=== PATIENT | male | born 1965 | race African-American/Black ===

== ENCOUNTER 2021-07-11 13:40 | Inpatient (IN) | payer MEDICAID ==
[~2021-07-11] VITALS: Ht 73.7 cm; Wt 49.5 kg
[~2021-07-11 13:40] MED LIST: ASCO125T PO; FERR-63 PO; HYDR-3927 PO; LEVO500T2 PO; METR250T36 PO; MULT-783 PO; ZINC220T4 PO
[2021-07-11] MEDS ORDERED: ONDANSETRON HCL 4MG/2ML INJ IV STA (13:47)
[2021-07-11] MEDS ORDERED: PANTOPRAZOLE SODIUM 40 MG/VIAL IV STA (13:47)
[2021-07-11] MEDS ORDERED: SODIUM CHLORIDE 0.9% 1,000 ML IV ONE (14:00)
[2021-07-11] MEDS ORDERED: SODIUM CHLORIDE 0.9% 1000ML BAG (SEPSIS BOLUS) IV ONE (14:45)
[2021-07-11] MEDS ORDERED: VANCOMYCIN 750 MG PREMIX 150 ML IV STA (14:51)
[2021-07-11 15:07] LABS: HEMATOCRIT. 30.9 % (42.0-52.0); HEMOGLOBIN. 10.4 g/dL (14.0-18.0); MEAN CORPUSCULAR HEMOGLOBIN 29.9 pg (28.0-32.0); MEAN CORPUSCULAR VOLUME 89.2 fL (80.0-94.0); PLATELET 467 x1000/uL (130-400); RED BLOOD CELL COUNT 3.46 mill/uL (4.7-6.1); RED CELL DISTRIBUTION WIDTH 13.8 % (11.6-14.6)
[2021-07-11] MEDS ORDERED: MORPHINE SULFATE 4 MG/ML CPJ (NOT FOR IM USE) IV STA (15:07)
[2021-07-11 15:11] LABS: CHLORIDE 100 mEq/L (98-107)
[2021-07-11 15:14] LABS: INR 1.1
[2021-07-11 15:18] LABS: ETHANOL BLOOD < 10 mg/dL
[2021-07-11] MEDS ORDERED: LABETALOL 5MG/ML SYR 20 MG/4 ML SYRINGE IV ONE (15:45)
[2021-07-11 16:05] LABS: PLATELET ESTIMATE INCREASED
[2021-07-11] MEDS ORDERED: HYDROCODONE/ACETAMINOPHEN 5/325MG TABLET PO NR (18:00)
[2021-07-11] MEDS ORDERED: NALOXONE HCL 0.4MG/ML VIAL IV PRN (22:00)
[2021-07-11] MEDS: HYDROCODONE/ACETAMINOPHEN 5/325MG TABLET PO PRN (23:15)
[2021-07-12] VITALS (9 sets, daily range): BP systolic 108–148; BP diastolic 57–88
[2021-07-12 02:35] LABS: CLARITY URINE CLOUDY (CLEAR); COLOR URINE YELLOW (YELLOW); KETONES URINE NEGATIVE (NEGATIVE); LEUKOCYTE ESTERASE URINE 2+ (NEGATIVE); NITRITE URINE POSITIVE (NEGATIVE); OCCULT BLOOD URINE 2+ (NEGATIVE); PH URINE 6.5 (4.5-8.0); PROTEIN URINE 2+ (NEGATIVE); SPECIFIC GRAVITY URINE 1.013 (1.005-1.030)
[2021-07-12 03:03] LABS: *AMPHETAMINES SCREEN URINE NEGATIVE (NEGATIVE); *BARBITURATES SCREEN URINE NEGATIVE (NEGATIVE); *BENZODIAZEPINES SCREEN URINE NEGATIVE (NEGATIVE); *COCAINE SCREEN URINE PRESUMTIVE POSITIVE (NEGATIVE); METHADONE URINE SCREEN NEGATIVE (NEGATIVE); OPIATES URINE SCREEN PRESUMTIVE POSITIVE (NEGATIVE)
[2021-07-12 03:04] LABS: CANNABINOID URINE SCREEN PRESUMTIVE POSITIVE (NEGATIVE); PHENCYCLIDINE URINE SCREEN NEGATIVE (NEGATIVE)
[2021-07-12] MEDS: HYDROCODONE/ACETAMINOPHEN 5/325MG TABLET PO PRN ×4 (03:53→17:32)
[2021-07-12] MEDS ORDERED: DEXTROSE 50% WATER 50ML SYRINGE IV PRN (05:15)
[2021-07-12] MEDS: BLOOD SUGAR DIAGNOSTIC STRIP TEST SCH ×3 (07:30→17:09)
[2021-07-12] MEDS ORDERED: VANCOMYCIN 500 MG PREMIX 100 ML IV SCH (08:00)
[2021-07-12] MEDS: INSULIN LISPRO 100 UNITS/ML SUBCUT SCH ×3 (08:00→17:09)
[2021-07-12] MEDS: AMLODIPINE 10MG TABLET PO SCH (09:10)
[2021-07-12] MEDS ORDERED: LEVOFLOXACIN 500MG PREMIX 100 ML IV NR (10:00)
[2021-07-12] MEDS: ZOLPIDEM TARTRATE 5MG TABLET PO PRN (19:35)
[2021-07-12] MEDS ORDERED: KETOROLAC 15MG/ML VIAL IV PRN (19:45)
[2021-07-12] MEDS: ONDANSETRON HCL 4MG/2ML INJ IV PRN (20:24)
[2021-07-13] VITALS (13 sets, daily range): BP systolic 100–145; BP diastolic 46–75
[2021-07-13] MEDS: HYDROCODONE/ACETAMINOPHEN 5/325MG TABLET PO PRN ×4 (00:18→19:56)
[2021-07-13 07:17] LABS: BASOPHILS % 0.2 % (0.0-2.0); EOSINOPHILS % 1.3 % (0.0-5.0); HEMATOCRIT. 31.4 % (42.0-52.0); HEMOGLOBIN. 10.4 g/dL (14.0-18.0); LYMPHOCYTES % 8.8 % (20.0-50.0); MEAN CORPUSCULAR HEMOGLOBIN 29.6 pg (28.0-32.0); MEAN CORPUSCULAR VOLUME 89.7 fL (80.0-94.0); MEAN PLATELET VOLUME 7.7 fl (7.4-10.4); MONOCYTES % 5.3 % (2.0-8.0); NEUTROPHILS % 84.4 % (40.0-76.0); PLATELET 370 x1000/uL (130-400); RED CELL DISTRIBUTION WIDTH 14.4 % (11.6-14.6)
[2021-07-13 07:31] LABS: CHLORIDE 106 mEq/L (98-107)
[2021-07-13] MEDS: AMLODIPINE 10MG TABLET PO SCH (09:00)
[2021-07-13] MEDS: ONDANSETRON HCL 4MG/2ML INJ IV PRN (10:09)
[2021-07-13] MEDS: LEVOFLOXACIN 500MG PREMIX 100 ML IV SCH (10:11)
[2021-07-13] MEDS: VANCOMYCIN 750 MG PREMIX 150 ML IV SCH ×2 (12:52→23:31)
[2021-07-13] MEDS: ZOLPIDEM TARTRATE 5MG TABLET PO PRN (19:56)
[2021-07-14] VITALS: BP 141/77
[2021-07-14] MEDS: HYDROCODONE/ACETAMINOPHEN 5/325MG TABLET PO PRN ×4 (01:59→20:36)
[2021-07-14 04:00] VITALS: BP 140/67
[2021-07-14 06:30] LABS: BASOPHILS % 0.7 % (0.0-2.0); EOSINOPHILS % 1.2 % (0.0-5.0); HEMATOCRIT. 29.2 % (42.0-52.0); HEMOGLOBIN. 9.6 g/dL (14.0-18.0); LYMPHOCYTES % 9.7 % (20.0-50.0); MEAN CORPUSCULAR HEMOGLOBIN 29.9 pg (28.0-32.0); MEAN CORPUSCULAR VOLUME 91.5 fL (80.0-94.0); MEAN PLATELET VOLUME 7.8 fl (7.4-10.4); NEUTROPHILS % 81.4 % (40.0-76.0); PLATELET 383 x1000/uL (130-400); RED BLOOD CELL COUNT 3.19 mill/uL (4.7-6.1); RED CELL DISTRIBUTION WIDTH 14.3 % (11.6-14.6)
[2021-07-14 06:43] LABS: CHLORIDE 105 mEq/L (98-107)
[2021-07-14 08:00] VITALS: BP 132/71
[2021-07-14] MEDS: AMLODIPINE 10MG TABLET PO SCH (08:28)
[2021-07-14] MEDS: DOCUSATE SODIUM 250MG CAPSULE PO SCH (08:28)
[2021-07-14] MEDS: VANCOMYCIN 750 MG PREMIX 150 ML IV SCH (11:30)
[2021-07-14 12:02] VITALS: BP 159/71
[2021-07-14] MEDS: LEVOFLOXACIN 500MG PREMIX 100 ML IV SCH (12:39)
[2021-07-14 16:00] VITALS: BP 129/70
[2021-07-14 16:54] VITALS: BP 135/75
[2021-07-14] MEDS: KETOROLAC 30MG/ML VIAL IV PRN (18:12)
[2021-07-14] MEDS: ZOLPIDEM TARTRATE 5MG TABLET PO PRN (20:35)
[2021-07-15] MEDS: VANCOMYCIN 750 MG PREMIX 150 ML IV SCH ×2 (00:39→11:42)
[2021-07-15] MEDS: HYDROCODONE/ACETAMINOPHEN 5/325MG TABLET PO PRN ×5 (00:59→20:44)
[2021-07-15] MEDS: DOCUSATE SODIUM 250MG CAPSULE PO SCH (09:42)
[2021-07-15] MEDS: AMLODIPINE 10MG TABLET PO SCH (09:43)
[2021-07-15] MEDS: LEVOFLOXACIN 500MG PREMIX 100 ML IV SCH (11:45)
[2021-07-15 16:58] LABS: BASOPHILS % 0.3 % (0.0-2.0); EOSINOPHILS % 2.3 % (0.0-5.0); HEMOGLOBIN. 9.8 g/dL (14.0-18.0); LYMPHOCYTES % 14.3 % (20.0-50.0); MEAN CORPUSCULAR HEMOGLOBIN 29.4 pg (28.0-32.0); MEAN CORPUSCULAR VOLUME 90.4 fL (80.0-94.0); MEAN PLATELET VOLUME 7.5 fl (7.4-10.4); MONOCYTES % 6.4 % (2.0-8.0); NEUTROPHILS % 76.7 % (40.0-76.0); PLATELET 444 x1000/uL (130-400); RED BLOOD CELL COUNT 3.32 mill/uL (4.7-6.1); RED CELL DISTRIBUTION WIDTH 14.1 % (11.6-14.6)
[2021-07-15 17:03] LABS: CHLORIDE 108 mEq/L (98-107)
[2021-07-15] MEDS: KETOROLAC 30MG/ML VIAL IV PRN (17:44)
[2021-07-15] MEDS: SODIUM HYPOCHLORITE 0.125% 473ML SOLUTION TOP SCH (17:53)
[2021-07-15 20:00] VITALS: BP 161/81
[2021-07-16] VITALS: BP 161/86
[2021-07-16] MEDS: HYDROCODONE/ACETAMINOPHEN 5/325MG TABLET PO PRN ×5 (00:58→19:06)
[2021-07-16 04:00] VITALS: BP 113/85
[2021-07-16] MEDS: VANCOMYCIN 750 MG PREMIX 150 ML IV SCH ×2 (06:02→18:00)
[2021-07-16 06:58] LABS: BASOPHILS % 1.4 % (0.0-2.0); EOSINOPHILS % 2.8 % (0.0-5.0); HEMATOCRIT. 31.4 % (42.0-52.0); HEMOGLOBIN. 10.4 g/dL (14.0-18.0); LYMPHOCYTES % 16.6 % (20.0-50.0); MEAN PLATELET VOLUME 7.6 fl (7.4-10.4); MONOCYTES % 6.3 % (2.0-8.0); NEUTROPHILS % 72.9 % (40.0-76.0); PLATELET 461 x1000/uL (130-400); RED BLOOD CELL COUNT 3.45 mill/uL (4.7-6.1); RED CELL DISTRIBUTION WIDTH 14.6 % (11.6-14.6)
[2021-07-16 08:00] VITALS: BP 169/79
[2021-07-16] MEDS: AMLODIPINE 10MG TABLET PO SCH (08:44)
[2021-07-16] MEDS: DOCUSATE SODIUM 250MG CAPSULE PO SCH (08:44)
[2021-07-16] MEDS: LEVOFLOXACIN 500MG PREMIX 100 ML IV SCH (11:59)
[2021-07-16 12:00] VITALS: BP 164/74
[2021-07-16 16:00] VITALS: BP 154/83
[2021-07-16 20:00] VITALS: BP 144/75
[2021-07-16] MEDS: KETOROLAC 30MG/ML VIAL IV PRN (23:18)
[2021-07-17] VITALS: BP 154/83
[2021-07-17] MEDS: HYDROCODONE/ACETAMINOPHEN 5/325MG TABLET PO PRN ×3 (02:00→13:26)
[2021-07-17 04:00] VITALS: BP 150/80
[2021-07-17] MEDS: VANCOMYCIN 750 MG PREMIX 150 ML IV SCH ×2 (06:18→17:17)
[2021-07-17 08:00] VITALS: BP 179/77
[2021-07-17] MEDS: DOCUSATE SODIUM 250MG CAPSULE PO SCH (09:02)
[2021-07-17] MEDS: AMLODIPINE 10MG TABLET PO SCH (09:03)
[2021-07-17] MEDS: SODIUM HYPOCHLORITE 0.125% 473ML SOLUTION TOP SCH (09:32)
[2021-07-17] MEDS: LEVOFLOXACIN 500MG PREMIX 100 ML IV SCH (10:17)
[2021-07-17 12:00] VITALS: BP 152/77
[2021-07-17 15:27] VITALS: BP 151/84
[2021-07-17 16:00] VITALS: BP 151/84
== END 2021-07-17 17:42 | disposition home health service (06) | DRG 720 ==
LOC: ER 13:54 → 5EST 15:48 → EDBEDREQ 16:05 → EDBEDREQSVC 16:05 → ENRESERV 07-12 01:50 → 6EST 07-14 16:26
PROVIDERS: ADMIT Internal Medicine; ATTEND Internal Medicine
PROC: 0JB70ZZ Excision of Back Subcutaneous Tissue and Fascia, Open Approach (ICD-10-PCS; principal; 2021-07-16)
PROC: 0JB90ZZ Excision of Buttock Subcutaneous Tissue and Fascia, Open Approach (ICD-10-PCS; 2021-07-16)
DX: A40.9 Streptococcal sepsis, unspecified (principal); L89.154 Pressure ulcer of sacral region, stage 4; E43 Unspecified severe protein-calorie malnutrition; L89.324 Pressure ulcer of left buttock, stage 4; K92.2 Gastrointestinal hemorrhage, unspecified; Z68.45 Body mass index [BMI] 70 or greater, adult; D64.9 Anemia, unspecified; E11.9 Type 2 diabetes mellitus without complications; F12.90 Cannabis use, unspecified, uncomplicated; F14.90 Cocaine use, unspecified, uncomplicated; I10 Essential (primary) hypertension; G40.909 Epilepsy, unspecified, not intractable, without status epilepticus; J45.909 Unspecified asthma, uncomplicated; N39.0 Urinary tract infection, site not specified; Z88.0 Allergy status to penicillin; Z89.612 Acquired absence of left leg above knee; Z89.611 Acquired absence of right leg above knee
CPT/HCPCS: 36415; 71045; 80048; 80053; 80202; 80305; 80320; 81003; 82040; 82962; 83605; 83880; 84134; 84145; 84484; 85025; 86850; 86900; 87077; 87186; 93005; 93306; 99291; C9113; J1885; J1956; J2270; J2405; J3370; J3490; J7030; J7040; G0480